=== PATIENT | male | born 1945 | race Caucasian/White ===

== ENCOUNTER → 2016-10-18 08:38 | Outpatient (CLI) | payer OTHER ==
[2010-07-18 09:12] VITALS: BMI 39.4
--- NOTE | ~2016-10-18 | EC ---
PATIENT:MACIE DELANEY DATE OF SERVICE: 10/18/16 SEX: M MEDICAL RECORD: [id number] DATE OF : 49 [facility] AGE OF PATIENT: 71 ADMISSION DATE: 10/18/16 REFERRING PHYSICIAN: INTERPRETING PHYSICIAN: DAHLIA DIOR MD ECHOCARDIOGRAM REPORT ECHO CHARGES 4 ECHO COMPLETE CLINICAL DIAGNOSIS: CAD ECHOCARDIOGRAPHIC MEASUREMENTS (adult normal given) AC root (d.<3.7cm) 3.8 LV Septum d (<1.2 cm> 1.8 Valve Excursion 1.8 LV Septum (systole) 2.4 Left Atria (s.<4.0cm> 4.3 LVPW d(<1.2cm) 1.4 RV (d.<2.3cm) 2.3 LVPW (sytole) 1.7 LV diastole(<5.6CM) 4.9 MV E-F(>70mm/sec) LV systole 3.5 LVOT Diameter 1.8 MV exc.(>10mm) Est.ejection fraction (50-75%) Pericardial Effusion N DOPPLER: LVIT A 52.0 E 92.0 LA RVSP 30.4 LVOT 87.0 AOP1/2T Asc. Ao 134 RVOT 60.0 RA PA 80.0 AV Gradient Peak 7.2 AV Mean 3.9 AV Area 1.3 MV Gradient Peak 5.0 MV Mean 1.8 MV Area COMMENTS: Property Utilization Manager: Bonnie HERCULES ADOLFO Application Coordinator:1 Dr. Dior TAPE# PACS TWO-DIMENSIONAL ECHOCARDIOGRAM WITH DOPPLER 1. Left ventricular chamber size is within normal limits. Left ventricular systolic function is normal. Overall ejection fraction is estimated at 50 percent. 2. Left atrium is enlarged at 4.3 centimeters. Right atrium and right ventricular chamber sizes are as well mildly dilated. 3. Valvular structures have normal structure and motion. 4. Doppler interrogation reveals trace aortic insufficiency, mild tricuspid regurgitation; no other valvular insufficiency or stenosis. Pulmonary artery systolic pressure is normal estimated at 30 millimeters of mercury. ECHOCARDIOGRAM REPORT [id number] MACIE DELANEY 5. No evidence of pericardial effusion or left ventricular thrombus. DAHLIA DIOR MD CC: [id number] DICTATION DATE: 10/18/16 1400 HEAD OF ETHICS AND COMPLIANCE: DM 10/19/16 1128 DEP CLI 10/18/[address] [facility] [address] [place] [address]
== END | disposition home or self-care (01) ==
LOC: D.ECHO 08:38
DX: I25.10 Atherosclerotic heart disease of native coronary artery without angina pectoris (principal)

== ENCOUNTER → 2016-11-08 09:00 | Outpatient (CLI) | payer OTHER ==
[2010-07-18 09:12] VITALS: BMI 39.4
[2016-11-08 09:22] LABS: APPEARANCE CLEAR (CLEAR); BILIRUBIN NEGATIVE (NEGATIVE); COLOR YELLOW (YELLOW); GLUCOSE NEGATIVE (NEGATIVE); KETONE NEGATIVE (NEGATIVE); LEUKOCYTE ESTERASE NEGATIVE (NEGATIVE); NITRITE NEGATIVE (NEGATIVE); PROTEIN NEGATIVE (NEGATIVE); UROBILINOGEN NORMAL (NORMAL)
[2016-11-08 09:31] LABS: ANION GAP 9.8 mmol/L (8-16); BILIRUBIN - TOTAL 0.6 mg/dL (0.2-1.3); CALCIUM 8.9 mg/dL (8.5-10.1); CARBON DIOXIDE 33.4 mmol/L (21.0-32.0); CREATININE - SERUM 1.7 mg/dL (0.6-1.3); POTASSIUM - SERUM 5.2 mmol/L (3.5-5.1); PROTEIN - SERUM 7.2 g/dL (6.4-8.2)
== END | disposition home or self-care (01) ==
LOC: D.LAB 08:00
PROVIDERS: Orthopaedic Surgery
DX: N18.9 Chronic kidney disease, unspecified (principal)